=== PATIENT | male | born 1975 | race Caucasian/White ===

== ENCOUNTER 2016-09-10 17:06 | Inpatient (IN) | payer MEDICAID, OTHER ==
[2016-09-10] MEDS ORDERED: HYDROMORPHONE HCL 1 MG/ML SYRINGE ONE (17:15)
[2016-09-10] MEDS ORDERED: ONDANSETRON 4 MG/2ML 2 ML VIAL ONE (17:15)
[2016-09-10 17:32] LABS: ABSOLUTE NEUTROPHIL COUNT 5.6 K/mm3 (1.8-7.7); BASO # 0.1 K/mm3 (0.0-0.2); BASO % 0.7 % (0.2-1.0); EOS # 0.1 (0.0-0.5); EOS % 1.3 % (0.9-2.9); IMM NEUT # 0.1 K/mm3 (0-0.2); IMM NEUT% 1.3 % (0-1); LYMPH # 3.4 (1.0-4.8); LYMPH % 32.1 % (15-45); MEAN CELL VOLUME 88.7 fl (80.0-94.0); MEAN CORPUSCULAR HEMOGLOBIN 30.2 pg (27.0-31.0); MEAN CORPUSCULAR HGB CONC 34.1 g/dl (33.0-37.0); MONO # 1.3 (0.0-0.8); MONO % 12.2 % (4-12); NEUT % 52.4 % (43-75); PLATELET COUNT 280 K/mm3 (130-400); RED CELL DISTRIBUTION WIDTH 12.3 % (11.5-14.5)
[2016-09-10 17:50] LABS: ALB/GLOB RATIO 1.4 (>1.0); ALBUMIN 4.2 gm/dL (3.5-5.7); CALCIUM 9.3 mg/dL (8.6-10.3)
--- NOTE | 2016-09-10 18:11 | RAD ---
Name: NISA LUCAS Exam: Right knee Comparison: None Clinical history: Trauma Findings: 5 radiographs of the right knee are submitted. Bone density is within normal limits. Visualized femur fibula and tibia are within normal limits. There is a very comminuted displaced open fracture of the inferior pole of the patella. The patellar tendon is lax. Intra-articular air is present. Also, there is quite a bit of air in the superficial soft tissues surrounding the distal femur. There is a small amount of joint fluid. Tibiofemoral joint spaces are maintained. Impression: Very comminuted displaced open intra-articular fracture of the interpole of the right patella
[2016-09-10] MEDS ORDERED: SODIUM CHLORIDE 0.9% 100 ML IV ONE (18:46)
[2016-09-10] MEDS ORDERED: CEFAZOLIN SODIUM 1,000 MG VIAL ONE ×2 (18:46→21:28)
[2016-09-10] MEDS ORDERED: MENTHOL/CETYLPYRD 1 EACH LOZENGE PO PRN (19:05)
[2016-09-10] MEDS ORDERED: BLISTEX LIPSTICK 1 EACH TP PRN (19:05)
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
[2016-09-10] MEDS ORDERED: MORPHINE SULFATE 4 MG/ML SYRINGE IV PRN (20:03)
[2016-09-10] MEDS: MORPHINE SULFATE 2 MG/ML SYRINGE IV PRN (20:26)
[2016-09-10] MEDS ORDERED: KETAMINE HCL UD SYRINGE 100 MG/2 ML IV ONE (20:42)
[2016-09-10] MEDS ORDERED: FENTANYL 100 MCG/2 ML VIAL ONE (20:42)
[2016-09-10] MEDS ORDERED: MIDAZOLAM HCL 1 MG/ML 2ML VIAL ONE (20:42)
[2016-09-10] MEDS ORDERED: SPINAL PROCEDURAL TRAY 1 EACH ONE (20:46)
[2016-09-10] MEDS ORDERED: BUPIVACAINE 0.5% (PRES FREE) 30 ML VIAL ONE (20:46)
[2016-09-10] MEDS ORDERED: LIDOCAINE 2% (PRES FREE) 5 ML VIAL ONE (21:24)
[2016-09-10] MEDS ORDERED: PROPOFOL 40 ML IV ONE (21:24)
[2016-09-10] MEDS ORDERED: PROMETHAZINE HCL 25 MG/ML VIAL IM PRN (21:43)
[2016-09-10] MEDS ORDERED: ONDANSETRON 4 MG/2ML 2 ML VIAL IV PRN (21:43)
[2016-09-10] MEDS ORDERED: HYDROMORPHONE HCL 1 MG/ML SYRINGE IV PRN (21:43)
[2016-09-10] MEDS ORDERED: NALOXONE HCL 0.4 MG/ML VIAL IV PRN (21:43)
[2016-09-10] MEDS ORDERED: ATROPINE SULFATE 0.4 MG/1 ML VIAL IV PRN (21:43)
[2016-09-10] MEDS ORDERED: LACTATED RINGERS 1,000 ML IV SCH (21:45)
[2016-09-10] MEDS ORDERED: PROPOFOL 20 ML IV ONE (21:56)
[2016-09-10] MEDS ORDERED: PHENYLEPHRINE 10 MG/1 ML (1%) VIAL ONE (22:01)
[2016-09-10] MEDS ORDERED: VANCOMYCIN HCL 1 G/20 ML VIAL ONE (22:26)
--- NOTE | 2016-09-10 22:45 | PCMBPN ---
Brief Post Op Note: Date of Procedure: 09/10/16 Start Time: 2114 Preoperative Diagnosis: 1. Right patella fracture, open (type I) Postoperative Diagnosis: 1. Same Procedure: Right Knee Irrigation and Debridement with distal patellar debridement and patellar tendon repair Surgeon: Josselyn Love MD Assist:none Anesthesia: spinal Findings: severely comminuted distal pole of the patella Condition: stable Complications: none IV Fluids: 1000 mLs of LR Urine Output: 0 mLs Estimated Blood Loss: 100 mLs Tourniquet Time: N/A Specimens: N/A Implants: none, transosseous repair Drains: N/A
[2016-09-10] MEDS: FENTANYL 100 MCG/2 ML VIAL IV PRN ×2 (22:50→23:04)
[2016-09-11] MEDS: MORPHINE SULFATE 2 MG/ML SYRINGE IV PRN ×2 (00:12→00:41)
[2016-09-11] MEDS ORDERED: PUMP TUBING ONE (00:44)
[2016-09-11] MEDS ORDERED: SODIUM CHLORIDE 0.9% 250 ML IV ONE (00:45)
[2016-09-11] MEDS ORDERED: SODIUM CHLORIDE 0.9% 100 ML IV ONE (00:49)
[2016-09-11] MEDS: OXYCODONE/ACETAMINOPHEN 5/325 MG TABLET PO PRN ×4 (01:28→13:53)
[2016-09-11] MEDS ORDERED: ONDANSETRON 4 MG/2ML 2 ML VIAL IV PRN (01:37)
[2016-09-11] MEDS ORDERED: LACTATED RINGERS 1,000 ML IV SCH (01:45)
[2016-09-11] MEDS: CEFAZOLIN SODIUM 2 GRAM DUPLEX 50 ML IV SCH ×3 (03:12→19:37)
--- NOTE | 2016-09-11 04:01 | PDOC43 ---
- Subjective Findings: patient in quite a bit of pain this am. he has not urinated since surgery Subjective: Reports Nausea, Denies Pain Tolerable, Denies Chest Pain, Denies Shortness of Breath - Objective Vital Signs Temperature 98.1 F 09/10/16 23:25 Pulse Rate 97 09/11/16 00:21 Respiratory Rate 20 09/10/16 23:25 Blood Pressure 109/63 09/11/16 00:21 O2 Saturation by Pulse Oximetry 95 09/11/16 00:21 Oxygen Delivery Method Room Air Oxygen Flow Rate 0 Active Medication Orders Category Date Time Status Aspirin (Enteric Coated) [Ecotrin] Med 09/11/16 09:00 Active 325 mg PO DAILY Hydromorphone HCl [Dilaudid] Med 09/11/16 03:56 Ordered 1 mg IV Q2H PRN Lactated Ringers 1,000 ml Med 09/11/16 01:45 Active IV 85 mls/hr Ondansetron 4 mg/2ml Vial [Zofran] Med 09/11/16 01:37 Active 4 mg IV Q4H PRN Oxycodone Sr [Oxycontin] Med 09/11/16 09:00 Ordered 10 mg PO Q12HR General: Afebrile HEENT: Atraumatic Lungs: Normal Air Movement Cardiovascular: Regular Rate and Rhythm Abdomen: Soft Skin: Normal Color - Right Lower Extremity Incision: Dressing Clean/Dry/Intact Motor: Extensor Hallucis Longus: 5/5, Tibialis Anterior: 5/5, Gastrocnemius: 5/5 , Peroneals: 5/5, Quadriceps: 5/5 Gross Sensation to Light Touch: Present: Deep Peroneal Nerve, Superficial Peroneal Nerve, Medial Plantar Nerve, Lateral Plantar Nerve, Sural Nerve, Saphenous Nerve Capillary Refill: < 3 Seconds - Problems (1) Open fracture of right patella Qualifiers: Open fracture type: open type I or II Fracture morphology: comminuted Fracture alignment: displaced Status: AcuteAssessment/Plan: adjusted pain regimen ordered castillo continue with iv abx for 48hours PT, NWB RLE Dr. Hwang to follow - Disposition DC home in 48 hours after antibiotics
[2016-09-11] MEDS: HYDROMORPHONE HCL 1 MG/ML SYRINGE IV PRN ×2 (04:10→20:06)
--- NOTE | 2016-09-11 07:53 | RAD ---
RIGHT HAND 3 VIEWS HISTORY: Left-sided numbness, chest pain. COMPARISONS: None. TECHNIQUE: Frontal, lateral, and oblique views of the right hand. ALIGNMENT: Negative ulnar variance. FRACTURE: No displaced acute fracture. DEGENERATIVE CHANGE: Minor degeneration at the first metacarpophalangeal joint. Degenerative change at the fourth distal interphalangeal joint. SOFT TISSUES: Grossly unremarkable. RADIOOPAQUE FOREIGN BODY: None. IMPRESSION: No gross malalignment or displaced acute fracture noted. Scattered degenerative changes. Negative ulnar variance.
--- NOTE | 2016-09-11 08:42 | RAD ---
KNEE RIGHT 1 OR 2 VIEWS HISTORY: Intraoperative fluoroscopy. Right patellar fracture fixation. COMPARISONS: Plain films 09/10/2016 FINDINGS: 6 overhead fluoroscopic images are provided for review. These images demonstrate surgical changes from the ORIF. Study is limited with respect osseous detail given fluoroscopic technique. Fluoroscopy time: 7.6 seconds IMPRESSION: Intraoperative fluoroscopy as above. Please see surgeon's report regarding the procedure for further details.
[2016-09-11] MEDS: OXYCODONE HCL 10 MG TAB.SR PO SCH ×2 (08:49→20:06)
[2016-09-11] MEDS: ASPIRIN (ENTERIC COATED) 325 MG TABLET.EC PO SCH (08:49)
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
[2016-09-11] MEDS ORDERED: OXYCODONE HCL 5 MG TABLET ONE ×2 (17:20)
[2016-09-11] MEDS: OXYCODONE HCL 5 MG TABLET PO PRN (17:25)
[2016-09-12] MEDS: OXYCODONE HCL 5 MG TABLET PO PRN ×5 (01:55→18:18)
[2016-09-12] MEDS: HYDROMORPHONE HCL 1 MG/ML SYRINGE IV PRN ×3 (02:42→20:11)
[2016-09-12] MEDS: CEFAZOLIN SODIUM 2 GRAM DUPLEX 50 ML IV SCH ×3 (02:42→19:28)
[2016-09-12] MEDS: ACETAMINOPHEN 500 MG TABLET PO PRN (08:12)
[2016-09-12 08:21] VITALS: BMI 35.3
[2016-09-12] MEDS: ASPIRIN (ENTERIC COATED) 325 MG TABLET.EC PO SCH (09:20)
[2016-09-12] MEDS: OXYCODONE HCL 10 MG TAB.SR PO SCH ×2 (09:20→20:49)
--- NOTE | 2016-09-12 17:58 | PDOC43 ---
- Subjective Findings: Pt seen today. Still having moderate pain in the knee. He had a hard time mobilizing with PT. He had a drop in PO2 this afternoon. When questioned he did state he was treating for pneumonia X 1 week prior to admission. Subjective: Reports Pain Tolerable (with meds), Denies Chest Pain, Denies Shortness of Breath, Denies Nausea, Denies Vomiting, Denies Fever - Objective Vital Signs Temperature 99.2 F 09/12/16 15:55 Pulse Rate 114 09/12/16 15:55 Respiratory Rate 17 09/12/16 15:55 Blood Pressure 122/60 09/12/16 15:55 O2 Saturation by Pulse Oximetry 95 09/12/16 15:55 Oxygen Delivery Method Room Air Oxygen Flow Rate 0 Active Medication Orders Category Date Time Status Acetaminophen [Tylenol] Med 09/12/16 08:02 Active 1,000 mg PO Q6H PRN Aspirin (Enteric Coated) [Ecotrin] Med 09/11/16 09:00 Active 325 mg PO DAILY Hydromorphone HCl [Dilaudid] Med 09/11/16 03:56 Active 1 mg IV Q2H PRN Ondansetron 4 mg/2ml Vial [Zofran] Med 09/11/16 01:37 Active 4 mg IV Q4H PRN Oxycodone HCl [Roxicodone] Med 09/11/16 17:19 Active 5 - 15 mg PO Q3H PRN Oxycodone Sr [Oxycontin] Med 09/11/16 09:00 Active 10 mg PO Q12HR Intake and Output 09/10/16 09/11/16 09/12/16 23:59 23:59 23:59 Intake Total 2273 826 Output Total 1750 1400 Balance 523 -574 General: Afebrile (Was feebrile earlier in the am. Improved now) HEENT: Atraumatic Lungs: Normal Air Movement, Diminished at Bases Abdomen: Non-Distended Skin: Normal Color Neurological: Alert, Oriented x 4 Psych/Mental Status: Normal Affect - Right Lower Extremity Incision: Erythema, Ecchymosis, Well Approximated, [place] Intact, No Drainage Motor: Extensor Hallucis Longus: 4/5, Tibialis Anterior: 4/5, Gastrocnemius: 4/5 , Peroneals: 4/5 Gross Sensation to Light Touch: Present: Deep Peroneal Nerve, Superficial Peroneal Nerve Capillary Refill: < 3 Seconds Motion: Calf swollen but soft NT Did not test his quads Knee in immobilizer. Dressing changed - Problems (1) Open fracture of right patella Qualifiers: Open fracture type: open type I or II Fracture morphology: comminuted Fracture alignment: displaced Status: AcuteAssessment/Plan: Will plan for new knee immobilizer in the am Incentive spirometer ASA for DVT prophylaxis continue with iv abx for until tomorrow. Plan for d/c 09-13-16 PT, NWB RLE Dr. Hwang will continue to follow
[2016-09-13] MEDS: OXYCODONE HCL 5 MG TABLET PO PRN ×4 (00:32→11:20)
[2016-09-13] MEDS: CEFAZOLIN SODIUM 2 GRAM DUPLEX 50 ML IV SCH ×2 (02:45→10:35)
[2016-09-13] MEDS: ACETAMINOPHEN 500 MG TABLET PO PRN (05:25)
[2016-09-13 07:08] VITALS: BP 100/64
--- NOTE | 2016-09-13 08:28 | PDOC43 ---
- Subjective Findings: No c/o overnight Subjective: Reports Pain Tolerable, Denies Shortness of Breath, Denies Nausea, Denies Vomiting, Denies Fever - Objective Vital Signs Temperature 98.5 F 09/13/16 07:06 Pulse Rate 100 09/13/16 07:06 Respiratory Rate 16 09/13/16 07:13 Blood Pressure 100/64 09/13/16 07:06 O2 Saturation by Pulse Oximetry 93 09/13/16 07:06 Oxygen Delivery Method Room Air Oxygen Flow Rate 0 Active Medication Orders Category Date Time Status Acetaminophen [Tylenol] Med 09/12/16 08:02 Active 1,000 mg PO Q6H PRN Aspirin (Enteric Coated) [Ecotrin] Med 09/11/16 09:00 Active 325 mg PO DAILY Hydromorphone HCl [Dilaudid] Med 09/11/16 03:56 Active 1 mg IV Q2H PRN Ondansetron 4 mg/2ml Vial [Zofran] Med 09/11/16 01:37 Active 4 mg IV Q4H PRN Oxycodone HCl [Roxicodone] Med 09/11/16 17:19 Active 5 - 15 mg PO Q3H PRN Oxycodone Sr [Oxycontin] Med 09/11/16 09:00 Active 10 mg PO Q12HR Intake and Output 09/11/16 09/12/16 09/13/16 23:59 23:59 23:59 Intake Total 2273 1246 300 Output Total 1750 2400 500 Balance 523 -1154 -200 General: Afebrile, No Acute Distress HEENT: Atraumatic Lungs: Normal Air Movement Cardiovascular: Regular Rate and Rhythm Skin: Normal Color, Warm, Dry, Intact Neurological: Alert, Oriented x 4 Psych/Mental Status: Normal Affect, Normal Mood - Right Lower Extremity Incision: Dressing Clean/Dry/Intact, No Drainage Motor: Extensor Hallucis Longus: 5/5, Tibialis Anterior: 5/5, Gastrocnemius: 5/5 Gross Sensation to Light Touch: Present: Deep Peroneal Nerve, Superficial Peroneal Nerve, Medial Plantar Nerve, Lateral Plantar Nerve Capillary Refill: < 3 Seconds - Problems (1) Open fracture of right patella Qualifiers: Open fracture type: open type I or II Fracture morphology: comminuted Fracture alignment: displaced Status: AcuteAssessment/Plan: Will plan for new ROM brace locked in extension Incentive spirometer- has been afebrile x24 hours. Recent diagnosis as outpatient of pneumonia. Will complete prescribed course of Abx ASA for DVT prophylaxis switch to PO Abx empirically (keflex) PT- TDWB with brace locked Will follow as outpatient- instructions reviewed - Disposition DC home in 48 hours after antibiotics
[2016-09-13] MEDS: OXYCODONE HCL 10 MG TAB.SR PO SCH (08:36)
[2016-09-13] MEDS: ASPIRIN (ENTERIC COATED) 325 MG TABLET.EC PO SCH (08:37)
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
== END 2016-09-13 11:30 | disposition home or self-care (01) | DRG 500 ==
LOC: ED 17:06 → SDC 18:56 → MS 19:19 → SDC 23:22
PROVIDERS: ADMIT Naturopath; ATTEND Naturopath
PROC: 0QSD04Z Reposition Right Patella with Internal Fixation Device, Open Approach (ICD-10-PCS; principal; 2016-09-10)
PROC: 0LMQ0ZZ Reattachment of Right Knee Tendon, Open Approach (ICD-10-PCS; 2016-09-10)
DX: S82.041A Displaced comminuted fracture of right patella, initial encounter for closed fracture (principal); J18.9 Pneumonia, unspecified organism; V86.59XA Driver of other special all-terrain or other off-road motor vehicle injured in nontraffic accident, initial encounter